=== PATIENT | female | born 1945 | race African-American/Black ===

== ENCOUNTER 2016-11-25 06:29 | Emergency (ER) | payer OTHER ==
[~2016-11-25] VITALS: Ht 172.7 cm; Wt 99.8 kg
[~2016-11-25 06:29] MED LIST: ALB5IS NEB; ASCO500T11 PO; FLUT110A INH; MON10T GT; TAM150SU PO
[2016-11-25] MEDS ORDERED: SODIUM CHLORIDE 0.9% 1,000 ML IV ONE (06:46)
[2016-11-25] MEDS ORDERED: IPRATROPIUM BROM 0.5 MG/2.5ML INH SOL NEB ONE (07:00)
[2016-11-25] MEDS ORDERED: ALBUTEROL SULF 2.5 MG/0.5ML(0.5%) NEB SOLN NEB ONE (07:00)
[2016-11-25] MEDS ORDERED: methylPREDNISolone SOD SUCC 125 MG/2 ML VL IV ONE (07:00)
[2016-11-25 08:32] LABS: CONDITION Y; Hemoglobin 14.6 g/dL (12.2-16.2); Mean Corpuscular Hgb Conc. 33.3 g/dL (32.0-36.0)
[2016-11-25 08:37] LABS: Basophils # (auto) 0 uL; Basophils % (auto) 0.4 % (0.0-2.0); Eosinophils # (auto) 0.5 uL; Eosinophils % (auto) 5.1 % (0.0-7.0); Hematocrit 43.7 % (36.0-46.0); Lymphocytes # (auto) 1.9 uL; Lymphocytes % (auto) 21.1 % (10.0-50.0); Mean Corpuscular Hemoglobin 32.9 pg (28.0-32.0); Mean Corpuscular Volume 98.8 fL (80.0-100.0); Mean Platelet Volume 7.9 fL (7.4-10.4); Monocytes # (auto) 0.7 uL; Monocytes % (auto) 8.2 % (0.0-12.0); Neutrophils # (auto) 5.9 uL; Neutrophils % (auto) 65.2 % (37.0-80.0); Platelet Count (auto) 331 10^3/uL (140-450); Red Cell Distribution Width 13.3 % (11.6-16.0)
[2016-11-25 08:51] LABS: BUN/Creatinine Ratio 16.3; Calcium 8.4 mg/dL (8.5-10.1); Magnesium 2.2 mg/dL (1.6-2.6); Potassium 4.1 mmol/L (3.5-5.1)
[2016-11-25 10:30] VITALS: BP 121/70
== END 2016-11-25 10:53 | disposition home or self-care (01) ==
LOC: ER 06:29
DX: J45.909 Unspecified asthma, uncomplicated (principal); Z90.710 Acquired absence of both cervix and uterus
CPT/HCPCS: 36415; 71020; 80048; 81002; 83735; 84443; 85025; 93005; 94640; 94761; 96361; 96374; 99285; J2930

== ENCOUNTER 2021-11-26 14:58 | Emergency (ER) | payer OTHER ==
[~2021-11-26] VITALS: Ht 172.7 cm; Wt 93.0 kg
[2021-11-26 15:07] VITALS: BP 108/69
[2021-11-26] MEDS ORDERED: methylPREDNISolone SOD SUCC 125 MG/2 ML VL IV ONE (15:30)
[2021-11-26] MEDS ORDERED: FUROSEMIDE 40 MG/4 ML VIAL IV ONE (15:30)
[2021-11-26 18:54] LABS: Basophils # (auto) 0 10 ^3/uL (0-0.2); Basophils % (auto) 0.2 % (0.0-2.0); Eosinophils # (auto) 0 10 ^3/uL (0-0.8); Eosinophils % (auto) 0.1 % (0.0-7.0); Hematocrit 45.4 % (36.0-46.0); Hemoglobin 15.1 g/dL (12.2-16.2); Lymphocytes # (auto) 0.9 10 ^3/uL (0.4-5.4); Lymphocytes % (auto) 24.6 % (10.0-50.0); Mean Corpuscular Hemoglobin 32.4 pg (28.0-32.0); Mean Corpuscular Hgb Conc. 33.2 g/dL (32.0-36.0); Mean Corpuscular Volume 97.4 fL (80.0-100.0); Monocytes # (auto) 0.5 10 ^3/uL (0-1.3); Monocytes % (auto) 14.3 % (0.0-12.0); Neutrophils # (auto) 2.3 10 ^3/uL (1.6-8.6); Neutrophils % (auto) 60.8 % (37.0-80.0); Nucleated Red Blood Cells % 0.3 %; Red Blood Cells 4.66 10^6/uL (4.0-5.20); White Blood Cell 3.8 10^3/uL (4.4-10.8)
[2021-11-26 19:18] LABS: Albumin 3.2 g/dL (3.4-5.0); BUN/Creatinine Ratio 10.6; Calcium 8.4 mg/dL (8.5-10.1); Potassium 3.5 mmol/L (3.5-5.1)
[2021-11-26 19:21] LABS: Bilirubin, Total 0.4 mg/dL (0.2-1.0)
== END 2021-11-27 02:33 | disposition left against medical advice (07) ==
LOC: ER 14:58
DX: U07.1 COVID-19 (principal); J45.901 Unspecified asthma with (acute) exacerbation; J44.9 Chronic obstructive pulmonary disease, unspecified; I50.9 Heart failure, unspecified; Z90.710 Acquired absence of both cervix and uterus
CPT/HCPCS: 36415; 71045; 80053; 83880; 84484; 85025; 85379; 87426; 93005; 96374; 96375; 99285; J1940; J2930

== ENCOUNTER → 2023-05-24 | Outpatient (CLI) | payer OTHER ==
[2023-05-24 16:10] LABS: Basophils # (auto) 0 10 ^3/uL (0-0.2); Basophils % (auto) 0.2 % (0.0-2.0); Eosinophils # (auto) 0.1 10 ^3/uL (0-0.8); Eosinophils % (auto) 1.2 % (0.0-7.0); Hematocrit 43.5 % (36.0-46.0); Hemoglobin 14.4 g/dL (12.2-16.2); Lymphocytes # (auto) 1.3 10 ^3/uL (0.4-5.4); Mean Corpuscular Hemoglobin 33.3 pg (28.0-32.0); Mean Corpuscular Hgb Conc. 33.2 g/dL (32.0-36.0); Mean Corpuscular Volume 100.5 fL (80.0-100.0); Monocytes # (auto) 0.8 10 ^3/uL (0-1.3); Monocytes % (auto) 8.8 % (0.0-12.0); Neutrophils # (auto) 6.5 10 ^3/uL (1.6-8.6); Neutrophils % (auto) 74.8 % (37.0-80.0); Red Blood Cells 4.33 10^6/uL (4.0-5.20); Red Cell Distribution Width 13.3 % (11.8-14.3); White Blood Cell 8.7 10^3/uL (4.4-10.8)
[2023-05-24 16:23] LABS: Alanine Aminotransferase 21 U/L (7-40); Albumin 3.8 g/dL (3.2-4.8); Alkaline Phosphatase 114 U/L (46-116); Anion Gap 3 (5-15); Aspartate Aminotransferase 15 U/L (13-40); BUN/Creatinine Ratio 9.2 (10.0-20.0); Blood Urea Nitrogen 9 mg/dL (9-23); Calcium 9.2 mg/dL (8.5-10.1); Carbon Dioxide 30 mmol/L (20-30); Chloride 108 mmol/L (98-107); Cholesterol 168 mg/dL (< 200); Glucose 111 mg/dL (74-106); HDL Cholesterol 58 mg/dL (40-59); LDL Cholesterol 105 mg/dL (< 100); Potassium 4.3 mmol/L (3.5-5.1); Sodium 141 mmol/L (136-145); Triglycerides 42 mg/dL (< 150)
[2023-05-24 16:24] LABS: Bilirubin, Total 0.5 mg/dL (0.2-1.0); Total Protein 6.6 g/dL (5.7-8.2)
[2023-05-25 16:29] LABS: Urine Bacteria NONE SEEN /hpf (None Seen); Urine Blood Negative /uL (Negative); Urine Clarity HAZY (Clear); Urine Color Yellow (Yellow); Urine Protein, UAD Negative (Negative); Urine Specific Gravity 1.017 (1.001-1.035); Urine Urobilinogen Normal (Negative); Urine WBC 6 /hpf (0 - 5); Urine pH 7.5 (5.0-8.0)
== END | disposition home or self-care (01) ==
LOC: LAB 15:39
PROVIDERS: ATTEND Family Medicine
DX: J44.9 Chronic obstructive pulmonary disease, unspecified (principal); J45.909 Unspecified asthma, uncomplicated; R73.03 Prediabetes
CPT/HCPCS: 36415; 80053; 80061; 81001; 83036; 84443; 85025

== ENCOUNTER → 2024-02-12 | Outpatient (CLI) | payer OTHER | END | disposition home or self-care (01) | LOC: XYW 02-01 16:10 | PROVIDERS: ATTEND Student in an Organized Health Care Education/Training Program | DX: I51.89 Other ill-defined heart diseases (principal); R06.02 Shortness of breath | CPT/HCPCS: 93306 ==

== ENCOUNTER → 2024-02-29 | Outpatient (CLI) | payer OTHER ==
[2024-02-29 12:46] LABS: Basophils # (auto) 0 10 ^3/uL (0-0.2); Basophils % (auto) 0.4 % (0.0-2.0); Eosinophils # (auto) 0.2 10 ^3/uL (0-0.8); Hematocrit 41.9 % (36.0-46.0); Hemoglobin 14.2 g/dL (12.2-16.2); Lymphocytes # (auto) 1.5 10 ^3/uL (0.4-5.4); Lymphocytes % (auto) 18.3 % (10.0-50.0); Mean Corpuscular Hgb Conc. 33.8 g/dL (32.0-36.0); Mean Corpuscular Volume 100.5 fL (80.0-100.0); Monocytes # (auto) 0.8 10 ^3/uL (0-1.3); Monocytes % (auto) 9.4 % (0.0-12.0); Neutrophils # (auto) 5.8 10 ^3/uL (1.6-8.6); Neutrophils % (auto) 69.9 % (37.0-80.0); Platelet Count (auto) 297 10^3/uL (140-450); Red Blood Cells 4.17 10^6/uL (4.0-5.20); White Blood Cell 8.3 10^3/uL (4.4-10.8)
[2024-02-29 13:41] LABS: % Iron Saturation 21.9 % (15-50)
[2024-02-29 13:43] LABS: Free T3 2.98 pg/mL (2.3-4.2)
[2024-02-29 13:44] LABS: Alanine Aminotransferase 11 U/L (7-40); Albumin 3.8 g/dL (3.2-4.8); Alkaline Phosphatase 128 U/L (46-116); Anion Gap 5 (5-15); Aspartate Aminotransferase 14 U/L (13-40); BUN/Creatinine Ratio 10.6 (10.0-20.0); Blood Urea Nitrogen 11 mg/dL (9-23); Calcium 9.2 mg/dL (8.7-10.4); Carbon Dioxide 30 mmol/L (20-31); Chloride 108 mmol/L (98-107); GFR African American 66 mL/min; GFR Non-African American 54 mL/min; Glucose 97 mg/dL (74-106); LDL Cholesterol 118 mg/dL (< 100); Potassium 3.9 mmol/L (3.5-5.1); Sodium 143 mmol/L (136-145); T3 Total 1.09 ng/mL (0.60-1.81); Triglycerides 53 mg/dL (< 150)
[2024-02-29 13:45] LABS: Bilirubin, Total 0.4 mg/dL (0.2-1.0); Cholesterol 187 mg/dL (< 200); HDL Cholesterol 62 mg/dL (40-59); Phosphorus 2.9 mg/dL (2.4-5.1); Total Protein 6.5 g/dL (5.7-8.2)
[2024-02-29 13:46] LABS: Folate (Folic Acid) 18.24 ng/mL (>5.38); Free T4 (Free Thyroxine) 0.97 ng/dL (0.89-1.76)
== END | disposition home or self-care (01) ==
LOC: LAB 11:41
PROVIDERS: ATTEND Family Medicine
DX: Z00.00 Encounter for general adult medical examination without abnormal findings (principal); R73.03 Prediabetes; N18.31 Chronic kidney disease, stage 3a; Z68.38 Body mass index [BMI] 38.0-38.9, adult
CPT/HCPCS: 36415; 80053; 80061; 80069; 82043; 82607; 82746; 83036; 83540; 83550; 84439; 84443; 84480; 84481; 85025

== ENCOUNTER 2024-06-28 11:15 | Inpatient (IN) | payer OTHER ==
[~2024-06-28] VITALS: Ht 172.7 cm; Wt 79.9 kg
[2024-06-28] MEDS: ALBUTEROL SULF 2.5 MG/0.5ML(0.5%) NEB SOLN NEB ONE (11:56)
[2024-06-28] MEDS: IPRATROPIUM BROM 0.5 MG/2.5ML INH SOL NEB ONE (11:56)
--- NOTE | 2024-06-28 12:15 | DVH ---
EXAM: XR Chest, 1 View CLINICAL INDICATION: ro pna TECHNIQUE: Frontal view of the chest. COMPARISON: CHEST PORTABLE on DOS: 11/26/21, CXRP on DOS: 11/26/21 FINDINGS: LUNGS AND PLEURAL SPACES: Pulmonary congestion and edema. Pneumonia cannot be excluded. No pneumot horax. HEART: Unremarkable. No cardiomegaly. MEDIASTINUM: Unremarkable. Normal mediastinal contour. BONES/JOINTS: Unremarkable. No acute fracture. OTHER FINDINGS: . . . .. IMPRESSION: Pulmonary congestion and edema. Pneumonia cannot be excluded.
--- NOTE | 2024-06-28 12:19 | ED.PDOC ---
SOB-HPI HPI Comments 78-year-old female presents with a chief complaint of flu-like symptoms and cough, with associated wheezing x "couple of days". Patient reports that her symptoms are: body aches, indigestion, dizziness, SOB, muscle pain, and cough. Patient is sating at 100% on room air and able to speak in full complete sentences. Patients pertinent PMHx is COPD. Patient is not on home oxygen. No other symptoms or modifying factors present at this time. 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 History: No Pertinent WEB GRAPHIC DESIGNER History Family History Family History: Unobtainable Social History Smoker: Non-Smoker Alcohol: Denies ETOH Use Drugs: Denies Drug Use Lives In: Home Constitutional: denies: chills, diaphoresis, fatigue, fever, malaise, sweats, weakness, others EENTM: denies: blurred vision, double vision, ear bleeding, ear discharge, ear drainage, ear pain, ear ringing, eye pain, eye redness, hearing loss, mouth pain, mouth swelling, nasal discharge, nose bleeding, nose congestion, nose pain, photophobia, tearing, throat pain, throat swelling, voice changes, others Respiratory: reports: cough, shortness of breath, wheezing; denies: hemoptysis, orthopnea, SOB at rest, SOB with excertion, stridor, others Cardiovascular: denies: chest pain, dizzy spells, diaphoresis, Dyspnea on exertion, edema, irregular heart beat, left arm pain, lightheadedness, palpi tations, PND, syncope, others Gastrointestinal: denies: abdomen distended, abdominal pain, blood streaked bowels, constipated, diarrhea, dysphagia, difficulty swallowing, hematemesis, melena, nausea, poor appetite, poor fluid intake, rectal bleeding, rectal pain, vomiting, others Genitourinary: denies: abnormal vagina bleeding, burning, dyspareunia, dysuria, flank pain, frequency, hematuria, incontinence, pain, , vagina discharge, urgency, others Neurological: denies: dizziness, fainting, headache, left sided numbness, left sided weakness, numbness, paresthesia, pre-existing deficit, right sided numbness, right sided weakness, seizure, speech problems, tingling, tremors, weakness, others Musculoskeletal: denies: back pain, gout, joint pain, joint swelling, muscle pain, muscle stiffness, neck pain, others Integumetry: denies: bruises, change in color, change in hair/nails, dryness, laceration, lesions, lumps, rash, wounds, others Allergic/Immunocompromised: denies: Difficulty Healing, Frequent Infections, Hives, Itching, others Hematologic/Lymphatic: denies: anemia, blood clots, easy bleeding, easy bru ising, swollen glands, others Endocrine: denies: excessive hunger, excessive sweating, excessive thirst, e xcessive urination, flushing, intolerance to cold, intolerance to heat, unexplained weight gain, unexplained weight loss, others Psychiatric: denies: anxiety, bipolar disorder, depression, hopeless, panic disorder, schizophrenia, sleepless, suicidal, others All Other Systems: Reviewed and Negative Physical Exam General Appearance: Normal, Severe Distress HEENT: Normal ENT Inspection, Pharynx Normal, TMs Normal Neck: Full Range of Motion, Non-Tender, Normal, Normal Inspection Respiratory: Wheezing (DIFFUSE) Cardiovascular: No Edema, No JVD, No Murmur, No Gallop, Normal Peripheral Pulses, Regular Rate/Rhythm Breast Exam: Deferred Gastrointestinal: No Organomegaly, Non Tender, No Pulsatile Mass, Normal Bowel Sounds, Soft Genitalia: Deferred Pelvic: Deferred Rectal: Deferred Extremities: No calf tenderness, Normal capillary refill, Normal inspection, Normal range of motion, Non-tender, No pedal edema Musculoskeletal : Apperance: Normal 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 Was a procedure done?: No Differential Dx Differential Diagnosis: Asthma, Bronchitis, CHF, COPD, Hyperventilation, Pneumonia, Pneumothorax, Respiratory Distress, Sinusitis X-Ray, Labs, Meds, VS Vital Signs Date Time Temp Pulse Resp B/P (MAP) Pulse Ox O2 Delivery O2 Flow Rate FiO2 06/28/24 14:06 141/90 06/28/24 14:00 85 14 141/90 (107) 94 06/28/24 14:00 85 14 94 Room Air* 0 21 06/28/24 12:19 89 06/28/24 12:00 16 96 Room Air* 0 21 06/28/24 11:48 89 06/28/24 11:30 98.1 97 23 156/95 (115) 100 06/28/24 11:28 24 100 Room Air* 0 21 Lab Test 06/28/24 13:40 06/28/24 12:47 Range/Units Troponin I High Sensitivity 8 9 </=34 ng/L White Blood Count 11.5 H 4.4-10.8 10^3/uL Red Blood Count 4.43 4.0-5.20 10^6/uL Hemoglobin 14.7 12.2-16.2 g/dL Hematocrit 43.9 36.0-46.0 % Mean Corpuscular Volume 99.1 80.0-100.0 fL Mean Corpuscular Hemoglobin 33.1 H 28.0-32.0 pg Mean Corpuscular Hemoglobin Concent 33.4 32.0-36.0 g/dL Red Cell Distribution Width 13.6 11.8-14.3 % Platelet Count 276 140-450 10^3/uL Mean Platelet Volume 6.9 6.9-10.8 fL Neutrophils (%) (Auto) 77.7 37.0-80.0 % Lymphocytes (%) (Auto) 11.0 10.0-50.0 % Monocytes (%) (Auto) 10.7 0.0-12.0 % Eosinophils (%) (Auto) 0.2 0.0-7.0 % Basophils (%) (Auto) 0.4 0.0-2.0 % Neutrophils # (Auto) 8.9 H 1.6-8.6 10 ^3/uL Lymphocytes # (Auto) 1.3 0.4-5.4 10 ^3/uL Monocytes # (Auto) 1.2 0-1.3 10 ^3/uL Eosinophils # (Auto) 0 0-0.8 10 ^3/uL Basophils # (Auto) 0 0-0.2 10 ^3/uL Nucleated Red Blood Cells 0.1 % Sodium Level 141 136-145 mmol/L Potassium Level 4.2 3.5-5.1 mmol/L Chloride Level 105 98-107 mmol/L Carbon Dioxide Level 30 20-31 mmol/L Anion Gap 6 5-15 Blood Urea Nitrogen 10 9-23 mg/dL Creatinine 0.98 0.550-1.02 mg/dL Glomerular Filtration Rate Calc 59 >90 mL/min BUN/Creatinine Ratio 10.2 10.0-20.0 Serum Glucose 108 H 74-106 mg/dL Calcium Level 9.2 8.7-10.4 mg/dL Current Medications Medications (Trade) Dose Ordered Sig/Magalys Route Start Time Stop Time Status Last Admin Albuterol (Ventolin Medneb) 5 mg ONCE ONCE NEB 06/28/24 11:45 06/28/24 11:46 DC 06/28/24 11:56 Ipratropium [place] (Atrovent Medneb) 0.5 mg ONCE ONCE NEB 06/28/24 11:45 06/28/24 11:46 DC 06/28/24 11:56 Dexamethasone Sodium Phosphate (Decadron Injection) 10 mg ONCE ONCE IV 06/28/24 11:45 06/28/24 11:46 DC 06/28/24 14:05 Furosemide (Lasix Injection) 40 mg ONCE ONCE IV 06/28/24 13:15 06/28/24 13:16 DC 06/28/24 14:06 PATIENT: KALEE HANDY ACCT: [id number] UNIT: [id number] : 1945 LOC: ER ROOM / BED: / AGE / SEX: 78 / F ADM STATUS: REG ER SERVICE 1135 ORDERING PHYSICIAN: AILYN PEDROZA MD PROCEDURE(s): CXRP - CHEST PORTABLE REASON: ro pna ORDER NUMBER(s): [id number], ACCESSION NUMBER(s): [id number] EXAM: XR Chest, 1 View CLINICAL INDICATION: ro pna TECHNIQUE: Frontal view of the chest. COMPARISON: CHEST PORTABLE on DOS: 11/26/21, CXRP on DOS: 11/26/21 FINDINGS: LUNGS AND PLEURAL SPACES: Pulmonary congestion and edema. Pneumonia cannot be excluded. No pneumothorax. HEART: Unremarkable. No cardiomegaly. MEDIASTINUM: Unremarkable. Normal mediastinal contour. BONES/JOINTS: Unremarkable. No acute fracture. OTHER FINDINGS: . . . .. IMPRESSION: Pulmonary congestion and edema. Pneumonia cannot be excluded. ATED BY: LAUREANO RODGERS MD DICTATED DATE/TIME: 06/28/241212 SIGNED BY: LAUREANO RODGERS MD SIGNED DATE/TIME: 06/28/24 1213 78-year-old female presents here with difficulty breathing. She was found to be in significant distress and nursing staff asked me to see the patient. Patient had diffuse wheezing in all lung tilley. She has a known history of COPD. At this time I have started the patient on albuterol bupropion and dexamethasone. Did have some clinical improvement. Chest x-ray has been done which demonstrates pulmonary congestion and edema pneumonia can not be excluded. I have started the patient on Lasix IV concern for possible pneumonia I have start ed the patient on Rocephin IV. At this time she would benefit from inpatient admission. Hospitalist team has been contacted. Time of 1ST Reevaluation: 12:00 Reevaluation 1ST: Unchanged Patient Education/Counseling: Diagnosis, Treatment, Prognosis Family Education/Counseling: Diagnosis, Treatment, Prognosis Departure 1 Departure Time of Disposition: 13:00 Impression: Primary Impression: COPD exacerbation Additional Impression: Pneumonia Disposition: ADMITTED INPATIENT Condition: Fair Critical Care Note Critical Care Time?: No Stability Stability form required: No I personally scribed for AILYN PEDROZA MD ([email or web address]) on 06/28/24 at 12:19. Electronically submitted by Luis Douglass ([email or web address]). I personally scribed for AILYN PEDROZA MD ([email or web address]) on 06/28/24 at 12:26. Electronically submitted by Luis Douglass ([email or web address]). AILYN PEDROZA MD Jun 28, 2024 12:19
[2024-06-28 12:58] LABS: Basophils # (auto) 0 10 ^3/uL (0-0.2); Basophils % (auto) 0.4 % (0.0-2.0); Eosinophils # (auto) 0 10 ^3/uL (0-0.8); Eosinophils % (auto) 0.2 % (0.0-7.0); Hematocrit 43.9 % (36.0-46.0); Hemoglobin 14.7 g/dL (12.2-16.2); Lymphocytes # (auto) 1.3 10 ^3/uL (0.4-5.4); Mean Corpuscular Hemoglobin 33.1 pg (28.0-32.0); Mean Corpuscular Hgb Conc. 33.4 g/dL (32.0-36.0); Mean Corpuscular Volume 99.1 fL (80.0-100.0); Monocytes # (auto) 1.2 10 ^3/uL (0-1.3); Monocytes % (auto) 10.7 % (0.0-12.0); Neutrophils # (auto) 8.9 10 ^3/uL (1.6-8.6); Neutrophils % (auto) 77.7 % (37.0-80.0); Nucleated Red Blood Cells % 0.1 %; Platelet Count (auto) 276 10^3/uL (140-450); Red Blood Cells 4.43 10^6/uL (4.0-5.20); Red Cell Distribution Width 13.6 % (11.8-14.3); White Blood Cell 11.5 10^3/uL (4.4-10.8)
[2024-06-28 13:07] LABS: Chloride 105 mmol/L (98-107); Potassium 4.2 mmol/L (3.5-5.1); Sodium 141 mmol/L (136-145)
[2024-06-28 13:08] LABS: Anion Gap 6 (5-15); Calcium 9.2 mg/dL (8.7-10.4); Carbon Dioxide 30 mmol/L (20-31)
[2024-06-28 13:13] LABS: BUN/Creatinine Ratio 10.2 (10.0-20.0); Blood Urea Nitrogen 10 mg/dL (9-23)
[2024-06-28 13:20] LABS: Glucose 108 mg/dL (74-106)
[2024-06-28 14:00] VITALS: PULSE 85; RESP 14; O2SAT 94
[2024-06-28] MEDS: DexAMETHasone SOD PHOS 10MG/1ML VIAL INJ IV ONE (14:05)
[2024-06-28] MEDS: FUROSEMIDE 40 MG/4 ML VIAL IV ONE (14:06)
[2024-06-28] MEDS: cefTRIAXone 1GM/50ML D5W 50 ML IV ONE (16:06)
[2024-06-28 17:54] LABS: Urine Bacteria FEW /hpf (None Seen); Urine Blood TRACE /uL (Negative); Urine Clarity Clear (Clear); Urine Color Light-Yellow (Yellow); Urine Hyaline Cast FEW /lpf (0 - 2); Urine Mucus FEW (None Seen); Urine Protein, UAD Negative (Negative); Urine Specific Gravity 1.007 (1.001-1.035); Urine Squamous Epithelial Cell FEW /hpf (<5); Urine Urobilinogen Normal (Negative); Urine WBC 1 /HPF (0-5)
--- NOTE | 2024-06-28 19:09 | DVHHP2 ---
History of Present Illness Reason for Visit: Shortness of breaths likely due to pneumonia History of Present Illness 78-year-old female presents with a chief complaint of flu-like symptoms and cough, with associated wheezing x "couple of days". Patient reports that her symptoms are: body aches, indigestion, dizziness, SOB, muscle pain, and cough. Patient is sating at 100% on room air and able to speak in full complete sentences. Patients pertinent PMHx is COPD. Patient is not on home oxygen. No other symptoms or modifying factors present at this time. Cardiovascular: CHF Pulmonary: Asthma, COPD Past Surgical History: Hysterectomy Family History: None Smoke: No ALCOHOL: none Drugs: None Lives: with Family Domestic Violence: Neg Review of Systems Respiratory: Shortness of breath, SOB with excertion, Wheezing Allergies: Coded Allergies: NO KNOWN ALLERGIES (Unverified , 06/09/14) Medications Current Medications Medications Dose Ordered Sig/Magalys Route Start Time Stop Time Status Last Admin Dose Admin Albuterol 2.5 mg Q4HR NEB 06/28/24 22:00 UNV Albuterol 2.5 mg Q2HPRN PRN NEB 06/28/24 19:15 UNV Ipratropium [place] 0.5 mg Q4HR NEB 06/28/24 22:00 UNV Ceftriaxone Sodium/Dextrose 50 ml @ 50 mls/hr DAILY IV 06/29/24 10:00 UNV Exam Vital Signs Vital Signs Date Time Temp Pulse Resp B/P (MAP) Pulse Ox O2 Delivery O2 Flow Rate FiO2 06/28/24 16:08 99.0 85 17 149/79 (102) 95 99.0 06/28/24 16:08 Room Air 06/28/24 14:00 0 21 General Appearance: Alert, Oriented X3, Cooperative HEENT: Atraumatic, PERRLA, Mucous membr. moist/pink Respiratory: Other (Wheezing to upper and lower lung tilley) Cardiovascular: Regular rate, Normal S1, Normal S2, No murmurs Abdominal: Normal bowel sounds, Soft, No tenderness, No hepatospenomegaly, No masses Extremities: No clubbing, No cyanosis, No edema, Normal pulses, No tenderness/swelling Skin: No rashes, No breakdown Neuro: Normal gait, Normal speech, Strength at 5/5 X4 ext, Normal tone, Sensation intact, Cranial nerves 3-12 NL, Reflexes 2+ Psych/Mental Status: Mental status NL, Mood NL Labs/Xrays Labs Test 06/28/24 17:20 06/28/24 13:40 06/28/24 12:47 Range/Units Urine Color Light-yellow Yellow Urine Clarity Clear Clear Urine pH 5.0 5.0-9.0 Urine Specific [place] 1.007 1.001-1.035 Urine Protein Negative Negative Urine Ketones Negative Negative Urine Blood Trace H Negative /uL Urine Nitrite Negative Negative Urine Bilirubin Negative Negative Urine Urobilinogen Normal Negative mg/dL Urine Leukocyte Esterase Negative Negative /uL Urine RBC 1 0 - 4 /hpf Urine Microscopic WBC 1 0-5 /HPF Urine Squamous Epithelial Cells Few <5 /hpf Urine Bacteria Few H None Seen /hpf Urine Hyaline Casts Few 0 - 2 /lpf Urine Mucus Few None Seen Urine Glucose Normal Normal mg/dL Troponin I High Sensitivity 8 </=34 ng/L White Blood Count 11.5 H 4.4-10.8 10^3/uL Red Blood Count 4.43 4.0-5.20 10^6/uL Hemoglobin 14.7 12.2-16.2 g/dL Hematocrit 43.9 36.0-46.0 % Mean Corpuscular Volume 99.1 80.0-100.0 fL Mean Corpuscular Hemoglobin 33.1 H 28.0-32.0 pg Mean Corpuscular Hemoglobin Concent 33.4 32.0-36.0 g/dL Red Cell Distribution Width 13.6 11.8-14.3 % Platelet Count 276 140-450 10^3/uL Mean Platelet Volume 6.9 6.9-10.8 fL Neutrophils (%) (Auto) 77.7 37.0-80.0 % Lymphocytes (%) (Auto) 11.0 10.0-50.0 % Monocytes (%) (Auto) 10.7 0.0-12.0 % Eosinophils (%) (Auto) 0.2 0.0-7.0 % Basophils (%) (Auto) 0.4 0.0-2.0 % Neutrophils # (Auto) 8.9 H 1.6-8.6 10 ^3/uL Lymphocytes # (Auto) 1.3 0.4-5.4 10 ^3/uL Monocytes # (Auto) 1.2 0-1.3 10 ^3/uL Eosinophils # (Auto) 0 0-0.8 10 ^3/uL Basophils # (Auto) 0 0-0.2 10 ^3/uL Nucleated Red Blood Cells 0.1 % Sodium Level 141 136-145 mmol/L Potassium Level 4.2 3.5-5.1 mmol/L Chloride Level 105 98-107 mmol/L Carbon Dioxide Level 30 20-31 mmol/L Anion Gap 6 5-15 Blood Urea Nitrogen 10 9-23 mg/dL Creatinine 0.98 0.550-1.02 mg/dL Glomerular Filtration Rate Calc 59 >90 mL/min BUN/Creatinine Ratio 10.2 10.0-20.0 Serum Glucose 108 H 74-106 mg/dL Calcium Level 9.2 8.7-10.4 mg/dL B-Type Natriuretic Peptide 86.63 0-100 pg/mL ORDERING PHYSICIAN: AILYN PEDROZA MD PROCEDURE(s): CXRP - CHEST PORTABLE REASON: ro pna ORDER NUMBER(s): [id number], ACCESSION NUMBER(s): [id number] EXAM: XR Chest, 1 View CLINICAL INDICATION: ro pna TECHNIQUE: Frontal view of the chest. COMPARISON: CHEST PORTABLE on DOS: 11/26/21, CXRP on DOS: 11/26/21 FINDINGS: LUNGS AND PLEURAL SPACES: Pulmonary congestion and edema. Pneumonia cannot be excluded. No pneumothorax. HEART: Unremarkable. No cardiomegaly. MEDIASTINUM: Unremarkable. Normal mediastinal contour. BONES/JOINTS: Unremarkable. No acute fracture. OTHER FINDINGS: . . . .. IMPRESSION: Pulmonary congestion and edema. Pneumonia cannot be excluded. ATED BY: LAUREANO RODGERS MD DICTATED DATE/TIME: 06/28/241212 SIGNED BY: LAUREANO RODGERS MD SIGNED DATE/TIME: 06/28/241212 CC: Assessment/Plan Assessment/Plan Shortness of breaths likely due to pneumonia---chief complaint shortness of breaths associated with flu-like symptoms and wheezing times several days No sick contact with family and friends History of smoking Upon evaluation patient noted to be short of breath with exertion when answering questions and notable wheezing Admit to medical-surgical unit Reviewed CBC shows leukocytosis Reviewed BMP which is normal Reviewed BNP which is normal Urinalysis normal Cardiac enzyme negative x2 Reviewed chest x-ray which shows pulmonary congestion and pneumonia can not be excluded DuoNeb q.2h hours Albuterol q.2h p.r.n. shortness of breath IV ceftriaxone started in the ER and we will continue IV steroid now and daily CHF Reviewed BNP which is normal Echocardiogram pending Resume medication Morbid obesity Lipid panel pending Reconcile home medication DVT prophylaxis PUD prophylaxis not indicated no history of GERD Labs in a.m. Discussed plan of care with the patient in which all questions concerns have been addressed Plan discussed with: Patient My Orders Orders - JUNIOR RUIZ Procedure Category Date Status Time Albuterol Medneb PHA 06/28/24 Logged (Ventolin Medneb) 22:00 Albuterol Medneb PHA 06/28/24 Logged (Ventolin Medneb) 19:15 Ipratropium Medneb PHA 06/28/24 Logged (Atrovent Medneb) 22:00 Ceftriaxone 2gm/50ml PHA 06/29/24 Logged D5w (Rocephin 2gm/5 10:00 Ascorbic Acid Tablet PHA 06/28/24 Verified (Vitamin C Tablet) 22:00 Montelukast Tablet PHA 06/29/24 Verified (Singulair Tablet) 10:00 Date of Service: Jun 28, 2024 Billing Provider: JUNIOR RUIZ Common Visit Codes: [id number] INP/OBS CARE (HIGH) JUNIOR RUIZ Jun 28, 2024 19:09
[2024-06-28] MEDS: methylPREDNISolone SOD SUCC 40 MG/ML VL IV ONE (20:27)
[2024-06-28 22:02] VITALS: PULSE 101; RESP 20; O2SAT 95
[2024-06-28] MEDS: ASCORBIC ACID 500 MG TAB PO SCH (22:07)
[2024-06-28 22:12] VITALS: PULSE 102; RESP 18; O2SAT 99
[2024-06-28 22:13] VITALS: O2SAT 95
[2024-06-28 22:15] VITALS: BP 131/90; PULSE 99; RESP 20; TEMP 99; O2SAT 95
[2024-06-29] VITALS (22 sets, daily range): BP systolic 144–176; BP diastolic 67–164; PULSE 70–109; RESP 16–20; TEMP 98–98.2; O2SAT 89–100
[2024-06-29] MEDS: ALBUTEROL SULF 2.5 MG/0.5ML(0.5%) NEB SOLN NEB SCH (00:47)
[2024-06-29] MEDS: IPRATROPIUM BROM 0.5 MG/2.5ML INH SOL NEB SCH (00:48)
[2024-06-29] MEDS: ALBUTEROL SULF 2.5 MG/0.5ML(0.5%) NEB SOLN NEB PRN (04:17)
[2024-06-29 05:55] LABS: Basophils # (auto) 0 10 ^3/uL (0-0.2); Basophils % (auto) 0.1 % (0.0-2.0); Eosinophils # (auto) 0 10 ^3/uL (0-0.8); Hematocrit 45.7 % (36.0-46.0); Hemoglobin 15.7 g/dL (12.2-16.2); Lymphocytes # (auto) 0.9 10 ^3/uL (0.4-5.4); Lymphocytes % (auto) 12.3 % (10.0-50.0); Mean Corpuscular Hemoglobin 33.8 pg (28.0-32.0); Mean Corpuscular Hgb Conc. 34.4 g/dL (32.0-36.0); Mean Corpuscular Volume 98.3 fL (80.0-100.0); Monocytes # (auto) 0.3 10 ^3/uL (0-1.3); Monocytes % (auto) 3.4 % (0.0-12.0); Neutrophils # (auto) 6.3 10 ^3/uL (1.6-8.6); Neutrophils % (auto) 84.2 % (37.0-80.0); Platelet Count (auto) 297 10^3/uL (140-450); Red Blood Cells 4.66 10^6/uL (4.0-5.20); White Blood Cell 7.5 10^3/uL (4.4-10.8)
[2024-06-29 06:19] LABS: Alanine Aminotransferase 25 U/L (7-40); Albumin 4.5 g/dL (3.2-4.8); Anion Gap 10 (5-15); Aspartate Aminotransferase 29 U/L (13-40); BUN/Creatinine Ratio 14.2 (10.0-20.0); Bilirubin, Total 0.3 mg/dL (0.2-1.0); Blood Urea Nitrogen 16 mg/dL (9-23); Calcium 10.1 mg/dL (8.7-10.4); Carbon Dioxide 29 mmol/L (20-31); Chloride 101 mmol/L (98-107); Potassium 3.9 mmol/L (3.5-5.1); Sodium 140 mmol/L (136-145); Total Protein 7.5 g/dL (5.7-8.2)
[2024-06-29 06:20] LABS: Alkaline Phosphatase 141 U/L (46-116); Glucose 131 mg/dL (74-106)
--- NOTE | 2024-06-29 07:21 | ECG ---
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
[2024-06-29] MEDS ORDERED: MONTELUKAST SODIUM 10 MG TAB GT SCH (10:00)
[2024-06-29] MEDS: MONTELUKAST SODIUM 10 MG TAB PO SCH (10:30)
[2024-06-29] MEDS: ENOXAPARIN SOD 40 MG/0.4 ML SYRINGE SC SCH (10:35)
[2024-06-29] MEDS: methylPREDNISolone SOD SUCC 40 MG/ML VL IV SCH (11:06)
[2024-06-29] MEDS: cefTRIAXone 2GM/50ML D5W 50 ML IV SCH (11:07)
--- NOTE | 2024-06-29 13:50 | DVHPN2 ---
Reviewed: Care Plan, H&P, Labs, Medications, Previous Orders, Radiology Changes from previous H/P or p: No Changes Respiratory: Shortness of breath, SOB with excertion, Wheezing Objective Vitals Vital Signs Date Time Temp Pulse Resp B/P (MAP) Pulse Ox O2 Delivery O2 Flow Rate FiO2 06/29/24 13:14 98.2 86 18 144/67 (92) 97 98.2 06/29/24 11:08 Nasal Cannula 2.0 06/29/24 11:08 28 Intake/Output Intake and Output 06/29/24 07:00 Intake Total 50 ml Balance 50 ml Intake Oral 0 ml IV Total 50 ml Medications Current Medications Medications Dose Ordered Sig/Magalys Route Start Time Stop Time Status Last Admin Dose Admin Albuterol 2.5 mg Q4HR NEB 06/28/24 22:00 06/29/24 11:08 2.5 MG Albuterol 2.5 mg Q2HPRN PRN NEB 06/28/24 19:15 06/29/24 04:17 2.5 MG Ipratropium [place] 0.5 mg Q4HR NEB 06/28/24 22:00 06/29/24 11:08 0.5 MG Ceftriaxone Sodium/Dextrose 50 ml @ 50 mls/hr DAILY IV 06/29/24 10:00 06/29/24 11:07 50 MLS/HR Ascorbic Acid 500 mg BID PO 06/28/24 22:00 06/29/24 10:30 500 MG Enoxaparin Sodium 40 mg DAILY SC 06/29/24 10:00 06/29/24 10:35 40 MG Acetaminophen 650 mg Q6HP PRN PO 06/28/24 19:15 Methylprednisolone Sodium Succinate 40 mg DAILY IV 06/29/24 10:00 06/29/24 11:06 40 MG Montelukast Sodium 10 mg DAILY PO 06/29/24 08:00 06/29/24 10:30 10 MG Laboratory Results Laboratory Tests 06/29/24 04:40 Chemistry Test 06/29/24 04:40 Albumin 4.5 g/dL (3.2-4.8) Calcium Level 10.1 mg/dL (8.7-10.4) Total Protein 7.5 g/dL (5.7-8.2) LFT Test 06/29/24 04:40 Alanine Aminotransferase (ALT) 25 U/L (7-40) Alkaline Phosphatase 141 U/L (46-116) H Aspartate Amino Transferase (AST) 29 U/L (13-40) Total Bilirubin 0.3 mg/dL (0.2-1.0) Urinalysis Test 06/28/24 17:20 Urine Color Light-yellow (Yellow) Urine Clarity Clear (Clear) Urine pH 5.0 (5.0-9.0) Urine Specific [place] 1.007 (1.001-1.035) Urine Protein Negative (Negative) Urine Ketones Negative (Negative) Urine Blood Trace /uL (Negative) H Urine Nitrite Negative (Negative) Urine Bilirubin Negative (Negative) Urine Urobilinogen Normal mg/dL (Negative) Urine Leukocyte Esterase Negative /uL (Negative) Urine RBC 1 /hpf (0 - 4) Urine Microscopic WBC 1 /HPF (0-5) Urine Squamous Epithelial Cells Few /hpf (<5) Urine Bacteria Few /hpf (None Seen) H Urine Hyaline Casts Few /lpf (0 - 2) Urine Mucus Few (None Seen) Urine Glucose Normal mg/dL (Normal) Labs and/or images reviewed: Labs reviewed by me, Image(s) reviewed by me Assessment/Plan Assessment/Plan Acute hypoxic respiratory failure: Oxygen by nasal cannula Acute bilateral community-acquired pneumonia: Rocephin azithromycin Acute COPD exacerbation: Albuterol Atrovent Solu-Medrol Acute CHF exacerbation Flu test pending Angie test pending Time spent 55 minutes Plan discussed with: Patient My Orders Orders - LARA JANSEN MD Procedure Category Date Status Time Rapid Influenza A&B LAB 06/29/24 Transmitted 13:47 Covid19 Antigen Radha LAB 06/29/24 Transmitted Date of Service: Jun 29, 2024 Billing Provider: LARA JANSEN MD Common Visit Codes: [id number] INP/OBS CARE(HIGH) LARA JANSEN MD Jun 29, 2024 13:50
[2024-06-29] MEDS: AZITHROMYCIN 500MG/ 250ML 250 ML IV ONE (14:00)
[2024-06-29 16:38] LABS: COVID19 ANTIGEN SOFIA FIA NEGATIVE (NEGATIVE); Rapid Influenza A Negative (Negative); Rapid Influenza B Negative (Negative)
--- NOTE | 2024-06-29 23:24 | DVHSR ---
APPROVED REPORT EXAM: LIMITED Two-dimensional and M-mode echocardiogram with Doppler and color Doppler. Blood Pressure: 176/84 mmHg INDICATION CHF RISK FACTORS Height: 5' 8", Weight: 246 DIMENSIONS LVDd4.1 (3.8-5.7cm)LA (2D)3.6 (1.9-4.0cm)Aortic Root3.1 (2.0-3.7cm) LVDs2.7 (2.5-4.0cm)LA (MM) (1.9-4.0cm)Aortic Cusp Exc1.8 (1.5-2.0cm) EF (%) 63.0 (55-70%)Rt. Atrium4.0 (1.9-4.0cm)Asc. Aorta cm IVSd1.5 (0.7-1.1cm)RV (D) (1.8-2.4cm) PWd1.4 (0.7-1.1cm) Mitral Valve MitralMitral Stenosis E wave0.90m/sMV Mean GR.mmHg A wave1.30m/sMV Peak GR.mmHg E/A ratio0.72D MVAcm2 Aortic Valve Aortic ValveAortic Stenosis V11.40m/Linda Mean GR.7mmHg V21.90m/Linda Peak GR.15mmHg LVOT Diameter2.0 (1.8-2.4cm)Doppler AVA2.31cm2 Pulmonic Valve V20.80m/s Other Information Quality : Technically LimitedRhythm : Atrial Fibrillation Technically limited study due to rhythm. Conclusion MILD LVH AND MILD DIASTOLIC DYSFUNCTION LV EJECTION FRACTION IS 65% AORTIC SCLEROSIS MITRAL ANNULAR CALCIFICATION NO EFFUSION
[2024-06-30] VITALS (23 sets, daily range): BP systolic 72–152; BP diastolic 63–85; PULSE 64–95; RESP 14–20; TEMP 97.3–98.3; O2SAT 92–100
--- NOTE | 2024-06-30 12:46 | DVHPN2 ---
Reviewed: Care Plan, H&P, Labs, Medications, Previous Orders, Radiology Changes from previous H/P or p: No Changes Respiratory: Shortness of breath, SOB with excertion, Wheezing Objective Vitals Vital Signs Date Time Temp Pulse Resp B/P (MAP) Pulse Ox O2 Delivery O2 Flow Rate FiO2 06/30/24 10:27 80 18 100 06/30/24 10:00 Nasal Cannula 2.0 06/30/24 10:00 28 06/30/24 09:00 97.4 130/76 (94) 97.4 Intake/Output Intake and Output 06/30/24 07:00 Intake Total 775 ml Balance 775 ml Intake Oral 725 ml IV Total 50 ml # Voids 4 Medications Current Medications Medications Dose Ordered Sig/Magalys Route Start Time Stop Time Status Last Admin Dose Admin Albuterol 2.5 mg Q4HR NEB 06/28/24 22:00 06/30/24 10:19 2.5 MG Albuterol 2.5 mg Q2HPRN PRN NEB 06/28/24 19:15 06/29/24 04:17 2.5 MG Ipratropium [place] 0.5 mg Q4HR NEB 06/28/24 22:00 06/30/24 10:19 0.5 MG Ceftriaxone Sodium/Dextrose 50 ml @ 50 mls/hr DAILY IV 06/29/24 10:00 06/30/24 10:17 50 MLS/HR Ascorbic Acid 500 mg BID PO 06/28/24 22:00 06/30/24 10:17 500 MG Enoxaparin Sodium 40 mg DAILY SC 06/29/24 10:00 06/30/24 10:17 40 MG Acetaminophen 650 mg Q6HP PRN PO 06/28/24 19:15 Methylprednisolone Sodium Succinate 40 mg DAILY IV 06/29/24 10:00 06/30/24 10:17 40 MG Montelukast Sodium 10 mg DAILY PO 06/29/24 08:00 06/30/24 10:17 10 MG Azithromycin 250 ml @ 125 mls/hr DAILY IV 06/30/24 10:00 Clonidine HCl 0.2 mg Q6HP PRN PO 06/29/24 15:30 Laboratory Results Laboratory Tests 06/29/24 04:40 Urinalysis Test 06/28/24 17:20 Urine Color Light-yellow (Yellow) Urine Clarity Clear (Clear) Urine pH 5.0 (5.0-9.0) Urine Specific [place] 1.007 (1.001-1.035) Urine Protein Negative (Negative) Urine Ketones Negative (Negative) Urine Blood Trace /uL (Negative) H Urine Nitrite Negative (Negative) Urine Bilirubin Negative (Negative) Urine Urobilinogen Normal mg/dL (Negative) Urine Leukocyte Esterase Negative /uL (Negative) Urine RBC 1 /hpf (0 - 4) Urine Microscopic WBC 1 /HPF (0-5) Urine Squamous Epithelial Cells Few /hpf (<5) Urine Bacteria Few /hpf (None Seen) H Urine Hyaline Casts Few /lpf (0 - 2) Urine Mucus Few (None Seen) Urine Glucose Normal mg/dL (Normal) Microbiology Microbiology Date/Time Source Procedure Growth Status 06/28/24 15:50 Blood Blood Culture - Preliminary NO GROWTH AFTER 24 HOURS OF INCUBATION. Resulted Labs and/or images reviewed: Labs reviewed by me, Image(s) reviewed by me Assessment/Plan Assessment/Plan Acute hypoxic respiratory failure: Oxygen by nasal cannula Acute bilateral community-acquired pneumonia: Rocephin azithromycin Acute COPD exacerbation: Albuterol Atrovent Solu-Medrol Acute CHF exacerbation Flu test negative Angie test negative Time spent 55 minutes Plan discussed with: Patient My Orders Orders - LARA JANSEN MD Procedure Category Date Status Time Azithromycin 500mg/ PHA 06/30/24 In Process 250ml (Zithromax 50 10:00 Clonidine Hcl Tablet PHA 06/29/24 In Process (Catapres Tablet) 15:30 Date of Service: Jun 30, 2024 Billing Provider: LARA JANSEN MD Common Visit Codes: [id number] INP/OBS CARE(HIGH) LARA JANSEN MD Jun 30, 2024 12:45
[2024-06-30] MEDS: AZITHROMYCIN 500MG/ 250ML 250 ML IV SCH (13:33)
[2024-06-30] MEDS: ACETAMINOPHEN 325 MG TAB PO PRN (21:12)
[2024-06-30] MEDS: MELATONIN 5 MG TAB PO PRN (23:41)
[2024-07-01] VITALS (27 sets, daily range): BP systolic 122–172; BP diastolic 64–86; PULSE 69–99; RESP 14–22; TEMP 78.1–99; O2SAT 91–100
--- NOTE | 2024-07-01 11:56 | DVHPN2 ---
Reviewed: Care Plan, H&P, Labs, Medications, Previous Orders, Radiology Changes from previous H/P or p: No Changes Respiratory: Shortness of breath, SOB with excertion, Wheezing Objective Vitals Vital Signs Date Time Temp Pulse Resp B/P (MAP) Pulse Ox O2 Delivery O2 Flow Rate FiO2 07/01/24 10:23 84 19 100 07/01/24 10:00 Room Air 0.0 07/01/24 10:00 21 07/01/24 05:00 78.1 122/64 (83) 78.1 Intake/Output Intake and Output 07/01/24 07:00 Intake Total 1325 ml Balance 1325 ml Intake Oral 1025 ml IV Total 300 ml # Voids 6 Medications Current Medications Medications Dose Ordered Sig/Magalys Route Start Time Stop Time Status Last Admin Dose Admin Albuterol 2.5 mg Q4HR NEB 06/28/24 22:00 07/01/24 10:13 2.5 MG Albuterol 2.5 mg Q2HPRN PRN NEB 06/28/24 19:15 06/29/24 04:17 2.5 MG Ipratropium Simms 0.5 mg Q4HR NEB 06/28/24 22:00 07/01/24 10:13 0.5 MG Ceftriaxone Sodium/Dextrose 50 ml @ 50 mls/hr DAILY IV 06/29/24 10:00 07/01/24 08:42 50 MLS/HR Ascorbic Acid 500 mg BID PO 06/28/24 22:00 07/01/24 08:45 500 MG Enoxaparin Sodium 40 mg DAILY SC 06/29/24 10:00 07/01/24 08:46 40 MG Acetaminophen 650 mg Q6HP PRN PO 06/28/24 19:15 06/30/24 21:12 650 MG Methylprednisolone Sodium Succinate 40 mg DAILY IV 06/29/24 10:00 07/01/24 08:45 40 MG Montelukast Sodium 10 mg DAILY PO 06/29/24 08:00 07/01/24 08:45 10 MG Azithromycin 250 ml @ 125 mls/hr DAILY IV 06/30/24 10:00 06/30/24 13:33 125 MLS/HR Clonidine HCl 0.2 mg Q6HP PRN PO 06/29/24 15:30 Melatonin 10 mg QHSP PRN PO 06/30/24 23:45 06/30/24 23:41 10 MG Laboratory Results Laboratory Tests 06/29/24 04:40 Urinalysis Test 06/28/24 17:20 Urine Color Light-yellow (Yellow) Urine Clarity Clear (Clear) Urine pH 5.0 (5.0-9.0) Urine Specific [place] 1.007 (1.001-1.035) Urine Protein Negative (Negative) Urine Ketones Negative (Negative) Urine Blood Trace /uL (Negative) H Urine Nitrite Negative (Negative) Urine Bilirubin Negative (Negative) Urine Urobilinogen Normal mg/dL (Negative) Urine Leukocyte Esterase Negative /uL (Negative) Urine RBC 1 /hpf (0 - 4) Urine Microscopic WBC 1 /HPF (0-5) Urine Squamous Epithelial Cells Few /hpf (<5) Urine Bacteria Few /hpf (None Seen) H Urine Hyaline Casts Few /lpf (0 - 2) Urine Mucus Few (None Seen) Urine Glucose Normal mg/dL (Normal) Microbiology Microbiology Date/Time Source Procedure Growth Status 06/28/24 15:50 Blood Blood Culture - Preliminary NO GROWTH AFTER 48 HOURS OF INCUBATION. Resulted Labs and/or images reviewed: Labs reviewed by me, Image(s) reviewed by me Assessment/Plan Assessment/Plan Acute hypoxic respiratory failure: Oxygen by nasal cannula Acute bilateral community-acquired pneumonia: Rocephin azithromycin Acute COPD exacerbation: Albuterol Atrovent Solu-Medrol; patient has med neb machine at home Acute CHF exacerbation Flu test negative Anige test negative Time spent 55 minutes Plan discussed with: Patient My Orders Orders - LARA JANSEN MD Procedure Category Date Status Time Abg W/ Co-Ox RT 06/30/24 Logged 15:33 Date of Service: Jul 01, 2024 Billing Provider: LARA JANSEN MD Common Visit Codes: [id number] INP/OBS CARE(HIGH) LARA JANSEN MD Jul 01, 2024 11:56
[2024-07-02] VITALS (11 sets, daily range): BP systolic 137–176; BP diastolic 64–70; PULSE 60–84; RESP 16–22; TEMP 37; O2SAT 93–100
[2024-07-02] MEDS: cloNIDine HCL 0.1 MG TAB PO PRN (00:23)
[2024-07-02] MEDS ORDERED: ALBUAER3 IN (11:52)
[2024-07-02] MEDS ORDERED: AZIT500T66 PO (11:52)
--- NOTE | 2024-07-02 11:56 | DVHDS2 ---
Discharge Summary Date of Admission Jun 28, 2024 at 19:07 Date of Discharge: Jul 02, 2024 Admitting Diagnosis Shortness of breath Wounds: None Labs/Diagnostic Data: Laboratory Results Test 07/01/24 12:49 06/29/24 16:17 06/29/24 04:40 06/28/24 17:20 D-Dimer, Quantitative 0.37 mg/L FEU (0.0-0.49) Influenza Type A Antigen Negative (Negative) Influenza Type B Antigen Negative (Negative) SARS-CoV-2 Antigen (Rapid) Negative (NEGATIVE) White Blood Count 7.5 10^3/uL (4.4-10.8) Red Blood Count 4.66 10^6/uL (4.0-5.20) Hemoglobin 15.7 g/dL (12.2-16.2) Hematocrit 45.7 % (36.0-46.0) Mean Corpuscular Volume 98.3 fL (80.0-100.0) Mean Corpuscular Hemoglobin 33.8 pg (28.0-32.0) Mean Corpuscular Hemoglobin Concent 34.4 g/dL (32.0-36.0) Red Cell Distribution Width 13.0 % (11.8-14.3) Platelet Count 297 10^3/uL (140-450) Mean Platelet Volume 7.4 fL (6.9-10.8) Neutrophils (%) (Auto) 84.2 % (37.0-80.0) Lymphocytes (%) (Auto) 12.3 % (10.0-50.0) Monocytes (%) (Auto) 3.4 % (0.0-12.0) Eosinophils (%) (Auto) 0.0 % (0.0-7.0) Basophils (%) (Auto) 0.1 % (0.0-2.0) Neutrophils # (Auto) 6.3 10 ^3/uL (1.6-8.6) Lymphocytes # (Auto) 0.9 10 ^3/uL (0.4-5.4) Monocytes # (Auto) 0.3 10 ^3/uL (0-1.3) Eosinophils # (Auto) 0 10 ^3/uL (0-0.8) Basophils # (Auto) 0 10 ^3/uL (0-0.2) Nucleated Red Blood Cells 0.0 % Sodium Level 140 mmol/L (136-145) Potassium Level 3.9 mmol/L (3.5-5.1) Chloride Level 101 mmol/L (98-107) Carbon Dioxide Level 29 mmol/L (20-31) Anion Gap 10 (5-15) Blood Urea Nitrogen 16 mg/dL (9-23) Creatinine 1.13 mg/dL (0.550-1.02) Glomerular Filtration Rate Calc 49 mL/min (>90) BUN/Creatinine Ratio 14.2 (10.0-20.0) Serum Glucose 131 mg/dL (74-106) Calcium Level 10.1 mg/dL (8.7-10.4) Total Bilirubin 0.3 mg/dL (0.2-1.0) Aspartate Amino Transferase (AST) 29 U/L (13-40) Alanine Aminotransferase (ALT) 25 U/L (7-40) Alkaline Phosphatase 141 U/L (46-116) Total Protein 7.5 g/dL (5.7-8.2) Albumin 4.5 g/dL (3.2-4.8) Urine Color Light-yellow (Yellow) Urine Clarity Clear (Clear) Urine pH 5.0 (5.0-9.0) Urine Specific [place] 1.007 (1.001-1.035) Urine Protein Negative (Negative) Urine Ketones Negative (Negative) Urine Blood Trace /uL (Negative) Urine Nitrite Negative (Negative) Urine Bilirubin Negative (Negative) Urine Urobilinogen Normal mg/dL (Negative) Urine Leukocyte Esterase Negative /uL (Negative) Urine RBC 1 /hpf (0 - 4) Urine Microscopic WBC 1 /HPF (0-5) Urine Squamous Epithelial Cells Few /hpf (<5) Urine Bacteria Few /hpf (None Seen) Urine Hyaline Casts Few /lpf (0 - 2) Urine Mucus Few (None Seen) Urine Glucose Normal mg/dL (Normal) Test 06/28/24 13:40 06/28/24 12:47 Troponin I High Sensitivity 8 ng/L (</=34) B-Type Natriuretic Peptide 86.63 pg/mL (0-100) Other Laboratory Tests 06/29/24 04:40 Brief Hx & Hospital Course: 78-year-old female with COPD CHF admitted for exacerbation of shortness of breaths flu test negative Angie test negative community-acquired pneumonia treated with Rocephin azithromycin. albuterol Atrovent Solu-Medrol for COPD. D-dimer negative. Patient feels better on room air with stable vital signs of the time of discharge. Discharged home on azithromycin and Ventolin MDI Consults/Reason for consult None Operations or Procedures None Condition at Discharge: Fair Final Diagnosis/Problems List Acute hypoxic respiratory failure: Oxygen by nasal cannula Acute bilateral community-acquired pneumonia: Rocephin azithromycin Acute COPD exacerbation: Albuterol Atrovent Solu-Medrol; patient has med neb machine at home Acute CHF exacerbation Flu test negative Angie test negative Discharge Disposition: Home Discharge Instruct/Medications Diet: Regular Activity: Light activity Follow Up/Referral: Follow up with your primary Dr Brown all previous home meds Medications: Azithromycin Ventolin MDI Transmitted to pharmacy 39 (Time taken for discharge summary 39 minutes) Discharge Statement: "Patient was advised to return to the ER or call 911 if any headaches, dizziness, shortness of breath, chest pain, abdominal pain, bleeding, fevers, or worsening of medical condition. Patient was counseled about treatment plan, medications, possible side effects, patientverbalized understanding. All questions were answered to the best of my ability. This discharge took greater then 30 minutes in planning, reviewing documentation, counseling the patient, and discussing with other team members." ASSESSMENT ASSESSMENT Assessment Acute hypoxic respiratory failure: Oxygen by nasal cannula Acute bilateral community-acquired pneumonia: Rocephin azithromycin Acute COPD exacerbation: Albuterol Atrovent Solu-Medrol; patient has med neb machine at home Acute CHF exacerbation Flu test negative Angie test negative Date of Service: Jul 02, 2024 Billing Provider: LARA JANSEN MD Common Visit Codes: [id number] INP/OBS CARE(HIGH) LARA JANSEN MD Jul 02, 2024 11:55
== END 2024-07-02 15:45 | disposition home or self-care (01) | DRG 177 ==
LOC: ER 11:15 → OVERFLOW 19:07 → EAST 06-29 02:09
PROVIDERS: ADMIT Nurse Practitioner Family; ATTEND Family Medicine
DX: J15.69 Pneumonia due to other Gram-negative bacteria (principal); I50.33 Acute on chronic diastolic (congestive) heart failure; J96.01 Acute respiratory failure with hypoxia; J44.1 Chronic obstructive pulmonary disease with (acute) exacerbation; J44.0 Chronic obstructive pulmonary disease with (acute) lower respiratory infection; J15.9 Unspecified bacterial pneumonia; E66.01 Morbid (severe) obesity due to excess calories; K30 Functional dyspepsia; Z20.822 Contact with and (suspected) exposure to COVID-19; Z87.891 Personal history of nicotine dependence; Z90.710 Acquired absence of both cervix and uterus; Z68.26 Body mass index [BMI] 26.0-26.9, adult
CPT/HCPCS: 36415; 36600; 71045; 80048; 80053; 81001; 82805; 83880; 84484; 85025; 85379; 87040; 87426; 87804; 93005; 93306; 94640; G0378; J1100